=== PATIENT | male | born 1950 | race Caucasian/White ===

== ENCOUNTER 2016-12-20 03:39 | Observation (INO) | payer MEDICARE, BC ==
--- NOTE | ~2016-12-20 | DS ---
Discharge Summary [facility] [address] [place]. [address] NAME: ANTONIO TRAORE : 46 STATUS : DIS Radha PAT#: [id number] AGE: 66 ADM/REG DATE : 12/20/16 MR#: [id number] REPORT SERV DATE: 12/23/16 DICTATED BY: JR. MELCHOR WILLIAM JOHN DATE: 12/22/16 REPORT STATUS : Draft TRANSCRIBED BY: MODMelvin DATE: 12/22/16 ADMISSION DATE: 12/20/2016 DISCHARGE DATE: 12/22/2016 DISCHARGE DIAGNOSES: Include: 1. Noncardiac chest pain. 2. Left arm and leg paresthesias. 3. Acute kidney injury on chronic kidney disease, stage 3. 4. Chronic lymphocytic leukemia. 5. Diabetes mellitus type 2 with long-term insulin use. 6. Hypertension. 7. Hyperlipidemia. 8. Hypothyroidism. OPERATIONS/PROCEDURES AND TREATMENTS: Include: 1. Cardiac catheterization done 12/21/2016 which showed mild luminal irregularities with normal left ventricular ejection fraction of 55% without mitral regurgitation. Left end-diastolic pressure was 12 mmHg. 2. Echocardiogram done 12/21/2016 was a technically difficult study with normal left ventricular size and systolic function. Ejection fraction of 50% to 55% with mild concentric left ventricular hypertrophy, mild diastolic dysfunction, normal right ventricular size and systolic function. No significant valvular disease. 3. Myocardial perfusion scan done 12/21/2016, Louie stage II was achieved with 85% predicted maximal heart rate at 7 METS, moderately severe exertional chest pain similar to previous symptoms. There were no EKG changes. There was a resting right bundle branch block. Moderate risk Hines Treadmill Score. There was imaging which demonstrated apical ischemia with ejection fraction of 50% to 60% overall intermediate risk stress test. 4. CT of the brain done 12/20/2016 showed some scattered deep white matter changes, overall lesion burden was moderate. On the right centrum ovale, there was relatively acute infarction without bleed with suggestion for MRI followup. 5. MRI of the brain done 12/21/2016 showed mild to moderate deep white matter change with atrophy involvement of the hippocampus and medulla. The previously noted acute area was not identified. 6. MRI of the thoracic spine done 12/21/2016 showed right central T8-9 herniation with old L1 compression fracture. DISCHARGE MEDICATIONS: Include: 1. Aspirin 81 mg orally twice a day. 2. Lipitor 40 mg orally daily. 3. Januvia 100 mg orally daily. 4. Dulcolax 5 mg orally at bedtime. 5. Colace 100 mg orally twice a day. 6. Flexeril 10 mg orally twice a day. 7. Glargine insulin 50 units at bedtime. 8. Synthroid 37.5 mcg daily. Discharge Summary [address] [place]. [address] NAME: ANTONIO TRAORE : 48 STATUS : DIS Radha PAT#: [id number] AGE: 66 ADM/REG DATE : 12/20/16 MR#: [id number] REPORT SERV DATE: 12/23/16 DICTATED BY: JR. MELCHOR WILLIAM JOHN DATE: 12/22/16 REPORT STATUS : Draft TRANSCRIBED BY: ALINE DATE: 12/22/16 9. Lisinopril 5 mg orally daily. 10.Mag-Ox 400 mg orally daily. 11.Prilosec 40 mg orally daily. 12.Paxil 37.5 mg orally daily. 13.Requip 2 mg orally daily. 14.Klonopin 0.5 mg orally daily. 15.Ibrutinib 420 mg orally at bedtime. 16.Lasix 40 mg orally daily. 17.Lispro insulin 12 units before meals. 18.[place] 5/325 p.r.n. 19.Metformin 1000 mg orally twice a day holding for two days. 20.Potassium gluconate 550 mg orally daily. HOSPITAL COURSE: The patient is a 66-year-old white male with a history of chronic lymphocytic leukemia and insulin-requiring diabetes mellitus with hypertension, hyperlipidemia, obstructive sleep apnea, presented to the emergency room on 12/20/2016 with complaint of chest pain with radiation to the left arm and leg. The patient said he was in his usual state of health until Wednesday evening when he developed acute onset of substernal chest pain associated with shortness of breath. During the episode, he had some radiation to the left arm which produced left arm numbness and tingling in the last 2-1/2 to 3 hours and resolved spontaneously. He had a second episode on Wednesday, described as a chest pressure with radiation to the left arm and left leg. He presented to the emergency room after the pain had resolved. Initial exam showed temperature of 97.2, heart rate 116, respiratory rate 18, and blood pressure 115/67. Exam was overall unremarkable. EKG showed sinus tachycardia with heart rate of 106 with right bundle branch block and very mild lateral T-wave flattening and inversion in V5 and V6. Troponin was negative. The patient was admitted to the Clinical Decision Unit for chest pain with left arm and leg paresthesias. He underwent an echocardiogram, which is detailed above followed by stress test. As detailed above, stress test was moderate risk. He was therefore seen by Cardiology and underwent a cardiac catheterization which showed only mild luminal irregularities. No further cardiac workup ensued. Regarding the left arm and leg paresthesias, he had an MRI of the brain after the CT showed what could have been an acute infarct. The MRI did not show an area of infarct. He also had an MRI of the thoracic spine which did show T10-T11 area of protrusion; however, his symptoms were not compatible with a lesion at this level. I discussed the above findings with the patient. He chooses to be discharged and follow up with Spine Surgery if warranted. The remainder of the patient's health problems were stable and were not addressed during this hospital stay. He will be discharged home on an ADA diet with activity as tolerated to follow up with his primary care physician, Dr. Shawn Chapman. He will also follow up with his oncologist, Barney Higuera. For discharge exam and laboratory, please see the daily progress note. This discharge took 36 minutes for patient encounter, coordination of care, and documentation. Discharge Summary [address] [address] NAME: ANTONIO TRAORE : 48 STATUS : DIS Radha PAT#: [id number] AGE: 66 ADM/REG DATE : 12/20/16 MR#: [id number] REPORT SERV DATE: 12/23/16 DICTATED BY: JR. MELCHOR WILLIAM JOHN DATE: 12/22/16 REPORT STATUS : Draft TRANSCRIBED BY: ALINE DATE: 12/22/16 ALYCIA/ALINE Percy Melchor Jr, MD / [id number] CC: Percy Melchor Jr, MD John Cranwell, M.D. BARNEY HIGUERA MD
--- NOTE | ~2016-12-20 | HP ---
History And Physical [facility] [address] [place]. [address] NAME: ANTONIO TRAORE : 48 STATUS : ADM Radha PAT#: [id number] AGE: 66 ADM/REG DATE : 12/20/16 MR#: [id number] REPORT SERV DATE: 12/20/16 DICTATED BY: LEONIDES PATEL DATE: 12/20/16 REPORT STATUS : Draft TRANSCRIBED BY: MODL DATE: 12/20/16 DATE OF ADMISSION: 12/20/2016 PRIMARY MEDICAL INSURANCE CODING SPECIALIST: Shawn Pizano MD PRIMARY ONCOLOGIST: Dr. Higuera. CHIEF COMPLAINT: Chest pain. HISTORY OF PRESENT ILLNESS: Mr. Traore is a 66-year-old gentleman with a history of CLL, insulin-dependent diabetes mellitus type 2, hypertension, hyperlipidemia, and obstructive sleep apnea, who presents to the emergency room today with a report of chest pain with radiation to his left arm and leg. The patient states he was in his usual state of health until Wednesday evening when he developed acute onset of substernal chest pressure with associated shortness of breath. During that chest pain episode, he also had some radiation to the left arm which produced some left arm numbness and tingling. That chest pain episode last about two and half to three hours and spontaneously resolved. He had a second episode of chest pain on Wednesday evening which began approximately 7 or 7:30. Also described a substernal chest pressure with radiation to the left arm as well as at that time the left leg. This episode of chest pain resolved upon presentation to the emergency room approximately 1 o'clock this morning. Of note, when his chest pain resolved, it also produces resolution of his left arm and leg symptoms. He denies any prior episodes of chest pain prior to Wednesday evening. He did undergo a stress test approximately two years ago at [facility] for what was felt at that time to be symptoms related to a panic attack. Stress test at that time reportedly was unremarkable. Initial evaluation in the emergency department notable for an EKG with a right bundle-branch block with some possible lateral T-wave flattening and inversions. Cardiac enzymes were unremarkable. Chest x-ray was clear. CT scan of the brain was negative. Labs notable for a white count of 29,600 as well as a creatinine of 1.54. The patient was subsequently admitted to the hospital service for further evaluation and management. The patient states that he has a history of some chronic tachycardia for which he has been evaluated and is followed by Dr. Pizano. He otherwise denies any recent fevers, night sweats, chills, cough, sputum production, abdominal pain, nausea, vomiting, diarrhea, constipation, dysuria, melena, hematochezia, hemoptysis, or hematemesis. COMPREHENSIVE SYSTEM REVIEW: Otherwise, negative unless listed in the history of present illness. PREVIOUS MEDICAL HISTORY: 1. CLL. 2. Insulin-dependent diabetes mellitus type 2. 3. Hypertension. History And Physical [address] [address] NAME: ANTONIO TRAORE : 46 STATUS : ADM Radha PAT#: [id number] AGE: 66 ADM/REG DATE : 12/20/16 MR#: [id number] REPORT SERV DATE: 12/20/16 DICTATED BY: LEONIDES PATEL DATE: 12/20/16 REPORT STATUS : Draft TRANSCRIBED BY: ALINE DATE: 12/20/16 4. Hyperlipidemia. 5. Restless legs syndrome. 6. Chronic anemia. 7. Depression and anxiety. 8. Hypothyroidism. 9. Diverticulosis. 10.Obstructive sleep apnea, not on CPAP but is on a mouth guard or device. 11.Extensive history of basal cell carcinoma and melanoma, status post resection. SURGICAL HISTORY: 1. Right total hip and then revision. 2. Spinal fusion. 3. Cholecystectomy. 4. Melanoma resection. 5. Bilateral inguinal hernia repair. 6. Groin lymph node dissection. 7. Cataracts. ALLERGIES: THIS IS YET TO BE CONFIRMED BY PHARMACY, BUT ON OUR LIST INCLUDES WELLBUTRIN, MEPERIDINE, OXYCODONE, DARVOCET, REGLAN, HYDROCODONE, ROBAXIN. HOME MEDICATIONS: Pending at the time of dictation. SOCIAL HISTORY: Denies any tobacco, alcohol, or illicits. FAMILY MEDICAL HISTORY: Mother with diabetes and valvular-induced congestive heart failure. Father with coronary artery disease in his 50s. Sibling with breast cancer. LABS AND IMAGIN. White count is 29.6, hemoglobin 14.4, hematocrit 44.5, and platelet count is 261. INR 1.1. 2. Sodium is 140, potassium 4.7, chloride 105, carbon dioxide 28, BUN 31, creatinine 1.54, glucose is 187, calcium 7.1, magnesium 1.8. 3. Troponin is less than 0.02. 4. Urinalysis: Spec gravity 1.018. No evidence of any infection. 5. EKG per my review shows sinus tachycardia with a heart rate of 106 and 110 with a right bundle-branch block as well as a very mild lateral T-wave flattening and inversions in V5 and V6 compared to prior EKGs. 6. Chest x-ray is pending at the time of dictation. 7. CT scan of the brain shows no acute intracranial abnormality. PHYSICAL EXAMINATION: VITAL SIGNS: Temperature is 97.2 degrees Fahrenheit, pulse is 116, respirations 18, saturating 92% on room air, blood pressure is 115/67. On recheck, blood pressure 139/74, pulse of 108. GENERAL: The patient is awake, alert, and in no acute distress. Resting comfortably. He is a well-developed, well-nourished, elderly male. History And Physical [address] [address] NAME: ANTONIO TRAORE : 48 STATUS : ADM Radha PAT#: [id number] AGE: 66 ADM/REG DATE : 12/20/16 MR#: [id number] REPORT SERV DATE: 12/20/16 DICTATED BY: LEONIDES PATEL DATE: 12/20/16 REPORT STATUS : Draft TRANSCRIBED BY: ALINE DATE: 12/20/16 HEENT: Atraumatic and normocephalic. Moist mucous membranes. Pupils are equal, round, reactive to light and accommodation. Extraocular eye movements are intact. No scleral icterus. NECK: No jugular venous distention. No carotid bruits. CARDIAC: Tachycardic rate. Regular rhythm. No murmurs, rubs, or gallops. Normal S1, S2. LUNGS: Clear to auscultation bilaterally. No wheezes, rhonchi, or crackles. ABDOMEN: Soft, nontender, nondistended. Good bowel sounds. No rebound, guarding, or rigidity. EXTREMITIES: Warm and well perfused. No cyanosis, clubbing, or edema. SKIN: Warm and dry. PSYCH: Affect appropriate. NEURO: Alert, oriented x3. Cranial nerves 2 through 12 grossly intact. Speech is normal. Gait not assessed. ASSESSMENT: Mr. Traore is a 66-year-old gentleman with a history of diabetes, hypertension, hyperlipidemia, who presents with two separate episodes of chest pain with radiation to his left arm and leg. PROBLEM LIST: 1. Recurrent chest pain concerning for unstable angina. 2. Left arm and leg paresthesias. 3. Acute kidney injury versus chronic kidney stage 3. 4. CLL. 5. Insulin-dependent diabetes mellitus type 2. 6. Hypertension. 7. Hyperlipidemia. PLAN: 1. Recurrent chest pain concerning for unstable angina. The patient has now had two separate episodes of substernal chest pain with radiation to the left arm and leg concerning for unstable angina. EKG and cardiac enzymes are unremarkable. We will continue to trend out cardiac enzymes. Schedule the patient for a stress test. The patient has received aspirin here in the emergency department. We will check A1c as well as fasting lipid panel for further risk stratification. Given description of the patient's symptoms as well as timing, I suspect that the left arm numbness and tingling which occur after the onset of chest pain are reflection of radiation rather than a separate possible neurologic event. 2. Left arm and leg paresthesias. As mentioned above, I suspect this is all related to his chest pain given history. CT scan of the brain was unremarkable. We will hold off on any further investigation at this time because I think this is all related to his chest pain. 3. Acute kidney injury versus chronic kidney stage 3. The patient is unsure of what his recent baseline creatinine is, but in our system, he does not have evidence of CKD. We will provide some IV fluid hydration holding nephrotoxic medications. Followup repeat BMP in the morning. 4. Insulin-dependent diabetes mellitus 2. We will place the patient on a level 2 sliding scale. Continue patient's home medications once confirmed. Check hemoglobin A1c. History And Physical [address] [address] NAME: ANTONIO TRAORE : 48 STATUS : ADM Radha PAT#: [id number] AGE: 66 ADM/REG DATE : 12/20/16 MR#: [id number] REPORT SERV DATE: 12/20/16 DICTATED BY: LEONIDES PATEL DATE: 12/20/16 REPORT STATUS : Draft TRANSCRIBED BY: ALINE DATE: 12/20/16 5. History of CLL. The patient's white count appears to be within recent baseline. Continue to monitor. 6. Tachycardia. The patient reports a history of chronic tachycardia for which he has been followed by Dr. Pizano as well as undergone extensive workup. Therefore, we will continue to monitor but I do not suspect that this is a new finding. 7. DVT prophylaxis. Lovenox subcu. CODE STATUS: The patient is a full code. JCB/MODL Leonides Patel MD / [id number] CC: MD Shawn Ramos II, M.D. John Carter Hemphill, MD
--- NOTE | ~2016-12-20 | CN ---
Consultation Report [facility] [address] [place]. [address] NAME: ANTONIO TRAORE : 46 STATUS : ADM Radha PAT#: [id number] AGE: 66 ADM/REG DATE : 12/20/16 MR#: [id number] REPORT SERV DATE: 12/21/16 DICTATED BY: NISHANT WALKER DATE: 12/21/16 REPORT STATUS : Draft TRANSCRIBED BY: MODL DATE: 12/21/16 CARDIOLOGY CONSULTATION DATE OF CONSULTATION: 12/21/2016 REASON FOR CONSULTATION: Chest discomfort, abnormal myocardial perfusion imaging study. HISTORY OF PRESENT ILLNESS: Mr. Traore is a pleasant 66-year-old gentleman. He has previously seen Dr. Pizano while at [facility]. He presented with complaints of chest discomfort, he described it as substernal, it lasted about three hours. He has had some discomfort with activity. Because of this, he underwent a myocardial perfusion imaging study today, he achieved stage II, and reportedly had some chest discomfort with the stress test. It did show some apical ischemia on the imaging portion, his ejection fraction was measured at 56%, and it was read as an overall intermediate-risk stress test. The patient had a negative stress test about two years ago. He had a cardiac catheterization 9 or 10 years ago by his report. He has CAD risk factors that include diabetes and hyperlipidemia. PAST MEDICAL HISTORY: Notable for hyperlipidemia, diabetes mellitus type 2, chronic lymphocytic leukemia, anxiety. HOME MEDICATIONS: Include aspirin, atorvastatin, insulin, levothyroxine, lisinopril. FAMILY HISTORY: Noncontributory. Negative for premature coronary disease. SOCIAL HISTORY: Negative for tobacco or alcohol. He is . REVIEW OF SYSTEMS: As noted above. All other systems reviewed and negative. PHYSICAL EXAMINATION: VITAL SIGNS: Blood pressure is 115/68, pulse of 80, respirations 16. GENERAL: Well developed, well nourished. HEENT: No icterus. Good dentition. NECK: Supple. No masses or thyromegaly. LUNGS: Breathing comfortably. No rales or wheezes. COR: Normal S1 and S2. No S3 or S4. No murmurs, clicks, rubs. No JVD. ABD: Soft, nondistended, nontender. No hepatosplenomegaly. EXT: No clubbing, cyanosis, or edema. Peripheral pulses 2+/= bilaterally. SKIN: Warm and dry. No visible lesions. MS: Chest wall without deformity. No obvious clavicular fractures. NEURO/PSYCH: Oriented x3. No anxiety or depression. DIAGNOSTIC STUDIES: EKG shows sinus rhythm with a normal AK interval; the QRS is prolonged in a right bundle-branch block pattern with a QRS duration of 130 milliseconds; QT interval Consultation Report [facility] [id number] [place]. [address] NAME: ANTONIO TRAORE : 46 STATUS : ADM Radha PAT#: [id number] AGE: 66 ADM/REG DATE : 12/20/16 MR#: [id number] REPORT SERV DATE: 12/21/16 DICTATED BY: NISHANT WALKER DATE: 12/21/16 REPORT STATUS : Draft TRANSCRIBED BY: ALINE DATE: 12/21/16 within normal limits; Q-waves noted in lead III; borderline Q-waves in aVF, cannot completely exclude inferior infarct; Q-waves also noted in V1 and V2, cannot exclude possibility of anteroseptal infarct. LABORATORY VALUES: Electrolytes within normal limits. Creatinine was 1.5 on admission, he did receive some hydration, and today's creatinine was 1.0. White count of 23,000 and is stable in terms of his CLL; platelet count 243; hematocrit of 40. ASSESSMENT AND PLAN: Pleasant gentleman, somewhat anxious, who has noted chest discomfort. He has CAD risk factors that include his age, male sex, diabetes, and hyperlipidemia. He has an intermediate-risk stress test. He has an abnormal EKG with borderline Q-waves noted in the inferior leads, Q-waves noted in V1 and V2 and along with his intermediate-risk stress test, I believe he should undergo cardiac catheterization. Admission creatinine was slightly elevated, it reduced with IV hydration, and he would appear to be a good candidate to go for his cardiac catheterization today. I have described the procedure to Mr. Traore. I noted the inherent risks which include, but not exclusive to bleeding, infection, cardiac perforation, risk of heart attack, stroke, and risk of . He claims to understand these issues and he is willing to proceed. KENDY/ALINE Nishant Walker M.D. / [id number] CC: MD Shawn Ramos II, M.D.
[2016-12-20 01:18] LABS: MEAN PLATELET VOLUME 10.6 fL (9.2-13.0); PLATELET COUNT 261 10/3/uL (150-400); RBC DISTRIBUTION WIDTH 15.2 % (12.0-16.0)
[2016-12-20 01:29] LABS: ER CBC TAT 0 Hrs 15 Mins; HEMATOCRIT 44.5 % (40.0-51.0); HEMOGLOBIN 14.4 g/dL (13.6-17.8); MANUAL DIFF YES %; MEAN CORPUS HGB CONC 32.4 g/dL (32.0-36.0); MEAN CORPUSCULAR HEMOGLOB 30.3 pg (26.0-34.0); MEAN CORPUSCULAR VOLUME 93.7 fL (80-100); RED CELL COUNT 4.75 10/6/uL (4.7-6.1); WHITE BLOOD CELLS 29.6 10/3/uL (4.5-10.5)
[2016-12-20 01:32] LABS: INTERNATIONAL NORMAL RATI 1.1 UNITS (-); PARTIAL THROMBO TIME 25.9 SEC (22.5-37.2); PROTIME (NOT ORD) 13.6 SEC (12.0-14.5)
[2016-12-20 01:35] LABS: BUN (BLOOD UREA NITROGEN) 31 MG/DL (6-23); CALCIUM, SERUM 10.1 MG/DL (8.5-10.4); CHEST PAIN PROFILE TAT 0 Hrs 21 Mins; CHLORIDE, SERUM 105 MMOL/L (96-112); CO2 (CARBON DIOXIDE) 28 MMOL/L (24-34); CREATININE 1.54 MG/DL (0.70-1.30); GFR AFRICAN AMERICAN 53 ML/MIN (>=60); GFR NON AFRICAN AMERICAN 46 ML/MIN (>=60); GLUCOSE, SERUM 187 MG/DL (60-99); POTASSIUM, SERUM 4.7 MMOL/L (3.5-5.3); SODIUM, SERUM 140 MMOL/L (135-148); TROPONIN I <0.02 NG/ML (<0.05)
[2016-12-20 01:43] LABS: ER DIFF TAT 0 Hrs 29 Mins; LYMPHOCYTES 84 %; LYMPHOCYTES ABSOLUTE (CALC) 24.86 10/3/uL (0.67-4.30); MONOCYTES 3 %; MONOCYTES ABSOLUTE (CALC) 0.89 10/3/uL (0.21-1.20); NEUTROPHILS ABSOLUTE (CALC) 3.85 10/3/uL (2.02-8.40); PATH REVIEW YES; PLATELET ESTIMATE ADQ (ADEQUATE); SEGMENTED NEUTROPHIL (0) 13 %; TOTAL NUCLEATED CELLS 100
[~2016-12-20 03:39] MED LIST: ANDROGEL1.25 GM TOP; ASA5GR PO; ASAB PO; B121000P IM; BIST PO; CEFT5 PO; CELEBREX2 PO; DIFLUNISAL500 MG PO; DSS PO; FESO4 PO; FLEX PO; GLUCOPHAGE1000 MG PO; GLUCPH8 PO; HUMALOGPEN SC; JANUVIA100 MG PO; KLONO1 PO; KRILLOIL PO; L20 PO; LANTUS SC; LEVOXYL100 MCG PO; LEVOXYL50 MCG PO; LIDOVISCUD OR; LIPITOR40 PO; LOVENOX40 SC; MAGOX4 PO; MELATONIN5 M1 PO; MOBIC7.5 PO; MOMUD PO; NEUR300 PO; NEXIUM40 PO; NORCO1 TA2 PO; NORCO1 TAB PO; NYSTOP100000 MG TOP; OXYCON10 PO; PAXIL CR37.5 MG PO; PAXIL40 MG PO; PCET PO; POT GLUCONAT550 M1 PO; POT GLUCONAT595 M1 OR; POT GLUCONAT595 M1 PO; POTASSIUM95 MG PO; PR12.5 PO; PRILOSEC40 MG PO; PRIN5 PO; REQUIP1 PO; REQUIP5 PO; T PO; TRUBIOTICS PO; TYLENOL ARTH650 MG PO; TYLENOL ARTHRITIS PO; ULTRAM50 PO; V2 PO; VITAMIN B 12 IM; VITAMIN D31000 UNIT PO; VITC500 PO; [UNRECOGNIZED DRUG - CODE] PO
[2016-12-20 04:58] LABS: ASCORBIC ACID (UR NOT ORDER) 40 (NEG); BILIRUBIN, URINE NEGATIVE (NEG); ER URINALYSIS TAT 0 Hrs 00 Mins; KETONE, URINE NEGATIVE (NEG); LEUKOCYTE ESTERASE(NOT OR NEG (NEG); NITRITE (URINE) NEG (NEG); WBC (NOT ORDERED) (RFLEX) 1 (0-5)
[2016-12-20 09:42] LABS: CPK 70 U/L (0-200); FREE T4 1.33 NG/DL (0.76-1.46); TRIGLYCERIDE 122 MG/DL (< 150); TROPONIN I <0.02 NG/ML (<0.05)
[2016-12-20 09:44] LABS: CHOL/HDL RATIO(NOT ORDER) 1.8 (0-5); CHOLESTEROL 72 MG/DL (< 200); CK-MB 3.3 NG/ML; HDL CHOLESTEROL 39 MG/DL (> 39); LDL CHOLESTEROL 9 MG/DL (< 130); NON-HDL CHOLESTEROL 33 MG/DL (< 160)
[2016-12-20] MEDS ORDERED: IMBRU140C PO (13:59)
[2016-12-20] MEDS ORDERED: LIPITOR40 PO (14:00)
[2016-12-20] MEDS ORDERED: ASAB PO (14:00)
[2016-12-20] MEDS ORDERED: BIST PO (14:01)
[2016-12-20] MEDS ORDERED: KLONO5 PO (14:01)
[2016-12-20] MEDS ORDERED: FLEX PO (14:01)
[2016-12-20] MEDS ORDERED: L40 PO (14:02)
[2016-12-20] MEDS ORDERED: DSS PO (14:02)
[2016-12-20] MEDS ORDERED: HUMALOG SC (14:02)
[2016-12-20] MEDS ORDERED: LANTUS SC (14:03)
[2016-12-20] MEDS ORDERED: KRILLOIL PO (14:03)
[2016-12-20] MEDS ORDERED: JANUVIA100 MG PO (14:03)
[2016-12-20] MEDS ORDERED: NORCO1 TA1 PO (14:03)
[2016-12-20] MEDS ORDERED: PRIN5 PO (14:04)
[2016-12-20] MEDS ORDERED: LEVOXYL75 MCG PO (14:04)
[2016-12-20] MEDS ORDERED: GLUCOPHAGE1000 MG PO (14:05)
[2016-12-20] MEDS ORDERED: MAGOX4 PO (14:05)
[2016-12-20] MEDS ORDERED: PRILOSEC40 MG PO (14:05)
[2016-12-20] MEDS ORDERED: PAXIL CR37.5 MG PO (14:06)
[2016-12-20] MEDS ORDERED: POTASSIUM GLUCONATE PO (14:06)
[2016-12-20] MEDS ORDERED: REQUIP2 PO (14:06)
[2016-12-20] MEDS ORDERED: PROBIOTIC PO (14:06)
[2016-12-20] MEDS ORDERED: ACET500CAP PO (14:07)
[2016-12-20 15:05] LABS: CPK 67 U/L (0-200); TROPONIN I <0.02 NG/ML (<0.05)
[2016-12-20 15:07] LABS: CK-MB 2.6 NG/ML
[2016-12-21 04:54] LABS: BUN (BLOOD UREA NITROGEN) 23 MG/DL (6-23); CHLORIDE, SERUM 105 MMOL/L (96-112); CO2 (CARBON DIOXIDE) 28 MMOL/L (24-34); CREATININE 1.03 MG/DL (0.70-1.30); GFR AFRICAN AMERICAN 86 ML/MIN (>=60); GFR NON AFRICAN AMERICAN 74 ML/MIN (>=60); GLUCOSE, SERUM 105 MG/DL (60-99); POTASSIUM, SERUM 4.1 MMOL/L (3.5-5.3); SODIUM, SERUM 141 MMOL/L (135-148)
[2016-12-21 05:18] LABS: HEMATOCRIT 40.4 % (40.0-51.0); HEMOGLOBIN 12.9 g/dL (13.6-17.8); MEAN CORPUS HGB CONC 31.9 g/dL (32.0-36.0); MEAN CORPUSCULAR HEMOGLOB 29.7 pg (26.0-34.0); MEAN CORPUSCULAR VOLUME 93.1 fL (80-100); MEAN PLATELET VOLUME 10.9 fL (9.2-13.0); PLATELET COUNT 243 10/3/uL (150-400); RBC DISTRIBUTION WIDTH 15.1 % (12.0-16.0); RED CELL COUNT 4.34 10/6/uL (4.7-6.1); WHITE BLOOD CELLS 23.3 10/3/uL (4.5-10.5)
[2016-12-21 05:25] LABS: MANUAL DIFF YES %
[2016-12-21 05:47] LABS: BAND NEUTROPHILS 6 %; EOSINOPHILS 2 %; EOSINOPHILS ABSOLUTE (CALC) 0.47 10/3/uL (0.0-0.53); IMMATURE GRANS ABSOLUTE (CALC) 0.23 10/3/uL (0.0-0.11); LYMPHOCYTES 71 %; LYMPHOCYTES ABSOLUTE (CALC) 16.54 10/3/uL (0.67-4.30); MONOCYTES 4 %; MONOCYTES ABSOLUTE (CALC) 0.93 10/3/uL (0.21-1.20); MYELOCYTES 1 %; NEUTROPHILS ABSOLUTE (CALC) 5.13 10/3/uL (2.02-8.40); PLATELET ESTIMATE ADQ (ADEQUATE); RBC MORPHOLOGY NORM (NORMAL); SEGMENTED NEUTROPHIL (0) 16 %; TOTAL NUCLEATED CELLS 100
[2016-12-21 16:39] LABS: CHOL/HDL RATIO(NOT ORDER) 2.1 (0-5); CHOLESTEROL 80 MG/DL (< 200); HDL CHOLESTEROL 39 MG/DL (> 39); LDL CHOLESTEROL 15 MG/DL (< 130); NON-HDL CHOLESTEROL 41 MG/DL (< 160); TRIGLYCERIDE 134 MG/DL (< 150)
[2016-12-22 05:59] LABS: BUN (BLOOD UREA NITROGEN) 17 MG/DL (6-23); CALCIUM, SERUM 9.4 MG/DL (8.5-10.4); CHLORIDE, SERUM 107 MMOL/L (96-112); CO2 (CARBON DIOXIDE) 27 MMOL/L (24-34); CREATININE 0.92 MG/DL (0.70-1.30); GFR AFRICAN AMERICAN 99 ML/MIN (>=60); GFR NON AFRICAN AMERICAN 85 ML/MIN (>=60); GLUCOSE, SERUM 167 MG/DL (60-99); POTASSIUM, SERUM 4.2 MMOL/L (3.5-5.3); SODIUM, SERUM 141 MMOL/L (135-148)
[2016-12-22 06:00] LABS: HEMATOCRIT 39.6 % (40.0-51.0); HEMOGLOBIN 12.6 g/dL (13.6-17.8); MEAN CORPUS HGB CONC 31.8 g/dL (32.0-36.0); MEAN CORPUSCULAR HEMOGLOB 29.9 pg (26.0-34.0); MEAN CORPUSCULAR VOLUME 94.1 fL (80-100); MEAN PLATELET VOLUME 10.3 fL (9.2-13.0); PLATELET COUNT 215 10/3/uL (150-400); RBC DISTRIBUTION WIDTH 15.3 % (12.0-16.0); RED CELL COUNT 4.21 10/6/uL (4.7-6.1); WHITE BLOOD CELLS 16.6 10/3/uL (4.5-10.5)
[2016-12-22 06:02] LABS: MANUAL DIFF YES %
[2016-12-22 06:39] LABS: BAND NEUTROPHILS 12 %; EOSINOPHILS 1 %; EOSINOPHILS ABSOLUTE (CALC) 0.17 10/3/uL (0.0-0.53); IMMATURE GRANS ABSOLUTE (CALC) 0.17 10/3/uL (0.0-0.11); LYMPHOCYTES 79 %; LYMPHOCYTES ABSOLUTE (CALC) 13.11 10/3/uL (0.67-4.30); METAMYELOCYTES 1 %; NEUTROPHILS ABSOLUTE (CALC) 3.15 10/3/uL (2.02-8.40); PLATELET ESTIMATE ADQ (ADEQUATE); RBC MORPHOLOGY NORM (NORMAL); SEGMENTED NEUTROPHIL (0) 7 %; SMUDGE CELLS MANY; TOTAL NUCLEATED CELLS 100
== END 2016-12-22 12:25 | disposition home or self-care (01) ==
LOC: ER 03:39 → CDU1 06:27 → CDU2 06:34
PROVIDERS: Emergency Medicine; Internal Medicine
DX: I20.0 Unstable angina (principal); C91.10 Chronic lymphocytic leukemia of B-cell type not having achieved remission; E78.5 Hyperlipidemia, unspecified; G25.81 Restless legs syndrome; D64.9 Anemia, unspecified; F32.9 Major depressive disorder, single episode, unspecified; F41.9 Anxiety disorder, unspecified; E03.9 Hypothyroidism, unspecified; G47.33 Obstructive sleep apnea (adult) (pediatric); N17.9 Acute kidney failure, unspecified; I12.9 Hypertensive chronic kidney disease with stage 1 through stage 4 chronic kidney disease, or unspecified chronic kidney disease; E11.22 Type 2 diabetes mellitus with diabetic chronic kidney disease; N18.3 Chronic kidney disease, stage 3 (moderate); Z98.1 Arthrodesis status; Z96.641 Presence of right artificial hip joint; Z90.49 Acquired absence of other specified parts of digestive tract; Z98.890 Other specified postprocedural states; Z98.41 Cataract extraction status, right eye; Z88.8 Allergy status to other drugs, medicaments and biological substances; Z98.42 Cataract extraction status, left eye; Z88.5 Allergy status to narcotic agent; Z82.49 Family history of ischemic heart disease and other diseases of the circulatory system
CPT/HCPCS: 70450; 70551; 71020; 72146; 78452; 80048; 80061; 81001; 82550; 82553; 82962; 83036; 83735; 84439; 84443; 84484; 85025; 85610; 85730; 93005; 93017; 93458; 96372; 96374; 99152; 99153; 99285; A9270-GY; A9502; C1760; C1769; C8929; G0378; J2250; J3010; Q9957; Q9967